=== PATIENT | female | born 1980 | race African-American/Black ===

== ENCOUNTER 2021-08-27 18:02 | Emergency (ER) | payer OTHER ==
[2021-08-27 22:45] VITALS: BP 124/80
== END 2021-08-27 22:52 | disposition home or self-care (01) ==
LOC: ER 18:02
DX: M25.332 Other instability, left wrist (principal); R07.89 Other chest pain; R51.9 Headache, unspecified; M54.2 Cervicalgia
CPT/HCPCS: 29125; 72040; 73110